=== PATIENT | female | born 1965 | race Caucasian/White ===

== ENCOUNTER 2017-07-17 06:14 | Day surgery (SDC) | payer OTHER ==
[~2017-07-17] VITALS: Ht 154.9 cm; Wt 66.4 kg
[2017-07-17] VITALS (11 sets, daily range): BP systolic 113–160; BP diastolic 56–83; PULSE 74–93; RESP 14–28; Ht 154.9 cm; Wt 66.4 kg
[2017-07-17] MEDS ORDERED: CEFAZOLIN 2 GM/50 ML (PMX) 50 ML IVPB SCH (06:30)
[2017-07-17] MEDS ORDERED: SOD CHLORIDE 0.9% 1,000 ML IV SCH (06:30)
[2017-07-17] MEDS ORDERED: LIDOCAINE 2% (SDV) 5 ML INJ ONE (07:00)
--- NOTE | 2017-07-17 10:00 | RADRPT ---
PROCEDURE: XR Chest. CLINICAL INDICATION: Shortness of breath TECHNIQUE: Single portable view of the chest was obtained COMPARISON: No priors for comparison FINDINGS: The trachea is midline. The cardiac silhouette and pulmonary vascularity are within normal limits. T he lungs are clear. The costophrenic angles are sharp. IMPRESSION: 1. No evidence of acute cardiopulmonary disease. RPTAT: AAPP Physician Zac Date Time Electronically viewed and signed by Ren Hernández Physician on 07/17/2017 10:00 IAN/
[2017-07-17] MEDS ORDERED: BUPIVACAINE 0.25% (MPF) 30 ML INJ ONE (11:06)
[2017-07-17] MEDS ORDERED: PROPOFOL 100 ML ONE (11:28)
[2017-07-17] MEDS ORDERED: MIDAZOLAM 1 MG/ML 2 ML INJ ONE (11:28)
[2017-07-17] MEDS ORDERED: CEFAZOLIN 1 GM INJ ONE (11:32)
[2017-07-17] MEDS ORDERED: FENTAnyl 50 MCG/ML VIAL ONE (11:39)
--- NOTE | 2017-07-17 12:23 | OPR ---
Date/Time of Note Date/Time of Note DATE: 07/17/17 TIME: 12:19 Operative Report Procedure Date: Jul 17, 2017 Preoperative Diagnosis left breast papillary lesion Postoperative Diagnosis same Operation/Procedure Performed 1. excision of left breast papillary lesion 7 cm incision 8 cm breast lesion 2. localized adjacent tissue transfer with the use of skin flaps 16 sq cm 3. therapeutic injection of subcutaneous local anesthesia Surgeon see signature line [employer] none Anesthesia Type: general Estimated Blood Loss: 10 - 50 ml's Transfusion none Specimen left breast papillary lesion Grafts/Implants none Complications none Pt Condition Post Procedure: stable Indications This is a 51-year-old female with a left breast papillary lesion. She requests surgical excision. Risks alternatives benefits and percent were discussed the patient. Patient expresses understanding consents to the operation. Procedure Description Patient is taken to the OR and prepped and draped in usual sterile fashion. Surgical timeout was performed. IV antibiotics given. Curvilinear incision is made over the left upper outer area of the breast after reviewing radiographic imaging. Dissection Carrs carried down to the area of the wire needle localization. This area is excised. Due to the proximity of the wire near the edge and additional margin was taken. Hemostasis established. Due to large tissue defect localized adjacent tissue transfer with these of skin flaps were performed. Multilayer closure with interrupted 3-0 Vicryl and running 4-0 Monocryl. There appears to contains local anesthesia was injected throughout the incision site. Dressings were applied. Lc KOWALSKI Jul 17, 2017 12:23
[2017-07-17] MEDS ORDERED: MEPERIDINE 25 MG INJ IV PRN (12:30)
[2017-07-17] MEDS ORDERED: DIPHENHYDRAMINE 50 MG INJ IV PRN (12:30)
[2017-07-17] MEDS ORDERED: HYDROmorphONE (0.2 MG/ML) 10ML SYG IV PRN (12:30)
[2017-07-17] MEDS ORDERED: HYDROCODONE/APAP (5/325) TAB PO ONE (12:30)
--- NOTE | 2017-07-20 13:23 | RADRPT ---
Vent Rate: 76 bpm RR Interval: 0 msec IN Interval: 140 msec QRS Duration: 88 msec QT Interval: 382 msec QTC Interval: 429 msec P-R-T Monson: 49 - -5 - 58 degrees Normal sinus rhythm Normal ECG Electronically Signed By: Javid Chawla [phone]
== END 2017-07-23 17:23 | disposition home or self-care (01) ==
LOC: SDS 06:14
PROVIDERS: ATTEND Surgery
DX: N60.12 Diffuse cystic mastopathy of left breast (principal)
CPT/HCPCS: 19120; 71010; 88307; 93005; J0690; J2250; J3010; Z7512; Z7610